=== PATIENT | male | born 1980 | race Caucasian/White ===

== ENCOUNTER 2020-11-20 11:26 | Inpatient (IN) | payer OTHER, SELFPAY ==
[~2020-11-20] VITALS: Ht 180.3 cm; Wt 104.3 kg
[2020-11-20 11:34] VITALS: BP 186/78
[2020-11-20 12:34] LABS: EOSINOPHILS % (AUTO) 0.3 % (0.0-4.0); HEMATOCRIT 42.7 % (36-52); HEMOGLOBIN 14.4 g/dL (12.0-18.0); LYMPHOCYTES # (AUTO) 0.6 K/uL (2.0-11.5); LYMPHOCYTES % (AUTO) 4.8 % (20.5-51.1); MEAN CORPUSCULAR HEMOGLOBIN 32 pg (27-31); MEAN CORPUSCULAR HGB CONC 34 g/dL (33-37); MEAN CORPUSCULAR VOLUME 93.8 fL (80-94); MONOCYTES # (AUTO) 0.3 K/uL (0.8-1.0); MONOCYTES % (AUTO) 2.2 % (1.7-9.3); NEUTROPHILS # (AUTO) 11.9 K/uL (1.8-7.7); NEUTROPHILS % (AUTO) 92.7 % (42.2-75.2); PLATELET COUNT (AUTO) 183 K/uL (140-450); RED BLOOD CELL COUNT(AUTO) 4.55 MIL/uL (4.20-6.10); WHITE BLOOD COUNT (AUTO) 12.9 K/uL (4.8-10.8)
[2020-11-20 12:44] LABS: CARBON DIOXIDE 29.5 mmol/L (21-32); CREATININE 1.1 mg/dL (0.6-1.3); POTASSIUM 3.5 mmol/L (3.5-5.1)
[2020-11-20 12:53] LABS: ALBUMIN 3.4 g/dL (3.4-5.0); BILIRUBIN,DIRECT 0.3 mg/dL (0.0-0.3); TOTAL BILIRUBIN 1.1 mg/dL (0.0-1.0)
[2020-11-20] MEDS ORDERED: NACL 0.9% 1,000 ML IV ONE (13:00)
[2020-11-20] MEDS ORDERED: metroNIDAZOLE 500 MG/NS PREMIX 100 ML IV ONE (13:00)
[2020-11-20 13:02] LABS: APPEARANCE,URINE CLEAR (CLEAR); BILIRUBIN,URINE NEGATIVE (NEGATIVE); BLOOD, URINE NEGATIVE (NEGATIVE); COLOR,URINE YELLOW (YELLOW); LEUKOCYTE ESTERASE ,URINE NEGATIVE (NEGATIVE); NITRITE, URINE NEGATIVE (NEGATIVE); UGLUCOSE NEGATIVE (NEGATIVE)
[2020-11-20] MEDS ORDERED: MORPHINE SULFATE 4 MG/ML SYR IVP ONE (13:05)
[2020-11-20] MEDS ORDERED: NACL 0.9% 1,000 ML IV SCH (13:15)
[2020-11-20] MEDS ORDERED: cefTRIAXone 1,000 MG VIAL ONE (13:20)
[2020-11-20] MEDS ORDERED: ONDANSETRON 4 MG/2 ML VIAL ONE (13:29)
[2020-11-20] MEDS: PIPERACILLIN/TAZOBACTAM 3.375 GM in DEXTROSE 5% 50 ML IV SCH (13:30)
[2020-11-20] MEDS ORDERED: ONDANSETRON 4 MG/2 ML VIAL IVP PRN (13:30)
[2020-11-20] MEDS ORDERED: PIPERACILLIN/TAZOBACTAM 3.375 GM VIAL IV ONE ×2 (13:40→20:33)
[2020-11-20] MEDS ORDERED: HYDROcodone/APAP 7.5/325 MG 1 TAB PO SCH (14:00)
[2020-11-20] MEDS ORDERED: OLAN10TA1 PO (15:36)
[2020-11-20] MEDS ORDERED: ESCI5SOL PO (15:36)
[2020-11-20] MEDS ORDERED: LISI10TA11 PO (15:36)
[2020-11-20] MEDS ORDERED: BENZ2TAB27 PO (15:36)
[2020-11-20] MEDS ORDERED: MAG SULF 2000 MG/WATER PREMIX 50 ML IV PRN (15:55)
[2020-11-20] MEDS ORDERED: POTASSIUM CHLORIDE 10 MEQ TABER PO PRN (15:55)
[2020-11-20] MEDS ORDERED: DOCUSATE SODIUM 100 MG GELCAP PO PRN (16:00)
[2020-11-20] MEDS: NACL 0.9% 1,000 ML IV SCH (16:00)
[2020-11-20] MEDS ORDERED: ONDANSETRON 4 MG/2 ML VIAL IM/IVP PRN (16:00)
[2020-11-20] MEDS ORDERED: ZOLPIDEM 5 MG TAB PO PRN (16:00)
[2020-11-20] MEDS ORDERED: LORazepam 2 MG/ML VIAL IM/IVP PRN (16:00)
[2020-11-20 16:35] LABS: PROTHROMBIN TIME 10.4 secs (10.8-13.4)
[2020-11-20 16:42] LABS: MAGNESIUM 2.2 mg/dL (1.8-2.4); PHOSPHORUS 3.5 mg/dL (2.5-4.9); THYROID STIMULATING HORMONE 1.79 uIU/mL (0.34-3.74)
[2020-11-20 18:50] VITALS: BP 154/57
[2020-11-20] MEDS ORDERED: PIPERACILLIN/TAZOBACTAM 3.375 GM in DEXTROSE 5% 50 ML IV SCH ×4 (21:00)
[2020-11-21] MEDS: NACL 0.9% 1,000 ML IV SCH ×2 (00:30→18:45)
[2020-11-21] MEDS: ACETAMINOPHEN 325 MG TAB PO PRN ×2 (01:05→19:02)
[2020-11-21 04:00] VITALS: BP 108/76
[2020-11-21] MEDS ORDERED: PIPERACILLIN/TAZOBACTAM 3.375 GM VIAL IV ONE (05:06)
[2020-11-21] MEDS: PIPERACILLIN/TAZOBACTAM 3.375 GM in DEXTROSE 5% 50 ML IV SCH ×3 (05:12→21:18)
[2020-11-21 06:16] LABS: BASOPHILS % (AUTO) 0.1 % (0.0-2.0); EOSINOPHILS # (AUTO) 0.1 K/uL (0-0.4); EOSINOPHILS % (AUTO) 0.7 % (0.0-4.0); HEMATOCRIT 36.4 % (36-52); HEMOGLOBIN 12.3 g/dL (12.0-18.0); LYMPHOCYTES # (AUTO) 0.8 K/uL (2.0-11.5); LYMPHOCYTES % (AUTO) 6.1 % (20.5-51.1); MEAN CORPUSCULAR HEMOGLOBIN 31 pg (27-31); MEAN CORPUSCULAR HGB CONC 34 g/dL (33-37); MEAN CORPUSCULAR VOLUME 92.4 fL (80-94); MONOCYTES # (AUTO) 0.7 K/uL (0.8-1.0); MONOCYTES % (AUTO) 5.5 % (1.7-9.3); NEUTROPHILS % (AUTO) 87.6 % (42.2-75.2); PLATELET COUNT (AUTO) 159 K/uL (140-450); RED BLOOD CELL COUNT(AUTO) 3.94 MIL/uL (4.20-6.10); RED CELL DISTRIBUTION WIDTH 14.1 % (11.6-13.7); WHITE BLOOD COUNT (AUTO) 12.5 K/uL (4.8-10.8)
[2020-11-21 06:42] LABS: ANION GAP 11.6 (8-16); CARBON DIOXIDE 25.9 mmol/L (21-32); CREATININE 0.8 mg/dL (0.6-1.3); POTASSIUM 3.5 mmol/L (3.5-5.1)
[2020-11-21 06:46] LABS: CHOL/HDL RATIO 3.7 (1-4.5)
[2020-11-21 07:23] LABS: PHOSPHORUS 2.9 mg/dL (2.5-4.9)
[2020-11-21 08:00] VITALS: BP 141/88
[2020-11-21] MEDS ORDERED: SUCCINYLCHOLINE CHLORIDE 200 MG/10 ML VIAL IVP ONE (09:00)
[2020-11-21] MEDS ORDERED: NEOSTIGMINE 1:1000 10 MG/10 ML VIAL ONE (09:00)
[2020-11-21] MEDS: BENZTROPINE 1 MG TAB PO SCH (09:00)
[2020-11-21] MEDS: CITALOPRAM 20 MG TAB PO SCH (09:00)
[2020-11-21] MEDS ORDERED: METOCLOPRAMIDE 10 MG/2 ML INJ VIAL ONE (09:00)
[2020-11-21] MEDS ORDERED: fentaNYL citrate 0.05 MG/ML VIAL ONE (09:00)
[2020-11-21] MEDS ORDERED: LIDOCAINE 2% 100 MG/5 ML SYR IVP ONE (09:00)
[2020-11-21] MEDS ORDERED: ONDANSETRON 4 MG/2 ML VIAL ONE (09:00)
[2020-11-21] MEDS ORDERED: ROCURONIUM 50 MG/5 ML VIAL IV ONE (09:00)
[2020-11-21] MEDS: lisinopriL 10 MG TAB PO SCH (09:00)
[2020-11-21] MEDS: OLANZapine 5 MG TAB PO SCH (09:00)
[2020-11-21] MEDS ORDERED: MORPHINE SULFATE 4 MG/ML SYR ONE (09:00)
[2020-11-21] MEDS ORDERED: GLYCOPYRROLATE 0.2 MG/ML VIAL ONE (09:00)
[2020-11-21] MEDS ORDERED: DEXAMETHASONE 4 MG/ML VIAL ONE (09:00)
[2020-11-21] MEDS ORDERED: PROPOFOL 200 MG/20 ML VIAL IV ONE (09:00)
[2020-11-21] MEDS ORDERED: SEVOFLURANE 250 ML BTL INH ONE (09:00)
[2020-11-21] MEDS ORDERED: MIDAZOLAM 2 MG/2 ML VIAL ONE (09:00)
[2020-11-21] MEDS ORDERED: BUPIVACAINE-MPF 0.25% 30 ML VIAL INJ ONE (09:01)
[2020-11-21] MEDS ORDERED: LIDOCAINE 1% 500 MG/50 ML VIAL ONE (09:01)
[2020-11-21] MEDS ORDERED: BACITRACIN 50000 UNITS/1 VIAL ONE (10:32)
[2020-11-21 20:00] VITALS: BP 149/102
[2020-11-22 04:00] VITALS: BP 153/101
[2020-11-22] MEDS: NACL 0.9% 1,000 ML IV SCH ×3 (04:57→18:00)
[2020-11-22] MEDS: PIPERACILLIN/TAZOBACTAM 3.375 GM in DEXTROSE 5% 50 ML IV SCH ×3 (04:58→21:16)
[2020-11-22] MEDS: MORPHINE SULFATE 2 MG/ML SYR IVP PRN (05:10)
[2020-11-22 06:02] LABS: BASOPHILS % (AUTO) 0.1 % (0.0-2.0); HEMOGLOBIN 12.9 g/dL (12.0-18.0); LYMPHOCYTES # (AUTO) 0.6 K/uL (2.0-11.5); LYMPHOCYTES % (AUTO) 4.2 % (20.5-51.1); MEAN CORPUSCULAR HEMOGLOBIN 32 pg (27-31); MEAN CORPUSCULAR HGB CONC 34 g/dL (33-37); MONOCYTES # (AUTO) 0.9 K/uL (0.8-1.0); MONOCYTES % (AUTO) 6.3 % (1.7-9.3); NEUTROPHILS # (AUTO) 12.4 K/uL (1.8-7.7); NEUTROPHILS % (AUTO) 89.4 % (42.2-75.2); PLATELET COUNT (AUTO) 216 K/uL (140-450); RED BLOOD CELL COUNT(AUTO) 4.09 MIL/uL (4.20-6.10); RED CELL DISTRIBUTION WIDTH 13.8 % (11.6-13.7); WHITE BLOOD COUNT (AUTO) 13.9 K/uL (4.8-10.8)
[2020-11-22 08:00] VITALS: BP 150/104
[2020-11-22 08:41] LABS: ANION GAP 12.2 (8-16); CARBON DIOXIDE 26.5 mmol/L (21-32); CREATININE 0.8 mg/dL (0.6-1.3); POTASSIUM 3.7 mmol/L (3.5-5.1)
[2020-11-22 08:42] LABS: MAGNESIUM 1.7 mg/dL (1.8-2.4); PHOSPHORUS 3.2 mg/dL (2.5-4.9)
[2020-11-22] MEDS: CITALOPRAM 20 MG TAB PO SCH (10:26)
[2020-11-22] MEDS: lisinopriL 10 MG TAB PO SCH (10:26)
[2020-11-22] MEDS: ACETAMINOPHEN 325 MG TAB PO PRN (10:26)
[2020-11-22] MEDS: OLANZapine 5 MG TAB PO SCH (10:26)
[2020-11-22] MEDS: BENZTROPINE 1 MG TAB PO SCH (10:26)
[2020-11-22 16:00] VITALS: BP 145/88
[2020-11-22 20:00] VITALS: BP 153/106
[2020-11-22] MEDS ORDERED: PIPERACILLIN/TAZOBACTAM 3.375 GM VIAL IV ONE (21:07)
[2020-11-23] MEDS: MORPHINE SULFATE 2 MG/ML SYR IVP PRN (03:58)
[2020-11-23 04:00] VITALS: BP 161/101
[2020-11-23] MEDS: NACL 0.9% 1,000 ML IV SCH ×2 (04:54→14:15)
[2020-11-23] MEDS: PIPERACILLIN/TAZOBACTAM 3.375 GM in DEXTROSE 5% 50 ML IV SCH ×3 (05:07→21:14)
[2020-11-23 07:56] LABS: ANION GAP 12.2 (8-16); CARBON DIOXIDE 26.2 mmol/L (21-32); CREATININE 0.7 mg/dL (0.6-1.3); POTASSIUM 3.4 mmol/L (3.5-5.1)
[2020-11-23 08:07] LABS: MAGNESIUM 2.3 mg/dL (1.8-2.4)
[2020-11-23] MEDS: CITALOPRAM 20 MG TAB PO SCH (09:35)
[2020-11-23] MEDS: BENZTROPINE 1 MG TAB PO SCH (09:35)
[2020-11-23] MEDS: lisinopriL 10 MG TAB PO SCH (09:36)
[2020-11-23] MEDS: OLANZapine 5 MG TAB PO SCH (09:36)
[2020-11-23 12:02] LABS: BASOPHILS # (AUTO) 0.1 K/uL (0.00-0.22); BASOPHILS % (AUTO) 0.4 % (0.0-2.0); EOSINOPHILS % (AUTO) 0.1 % (0.0-4.0); HEMATOCRIT 45.5 % (36-52); LYMPHOCYTES # (AUTO) 0.7 K/uL (2.0-11.5); LYMPHOCYTES % (AUTO) 5.6 % (20.5-51.1); MEAN CORPUSCULAR HEMOGLOBIN 31 pg (27-31); MEAN CORPUSCULAR HGB CONC 34 g/dL (33-37); MEAN CORPUSCULAR VOLUME 92.7 fL (80-94); MONOCYTES # (AUTO) 1.4 K/uL (0.8-1.0); MONOCYTES % (AUTO) 10.9 % (1.7-9.3); NEUTROPHILS # (AUTO) 10.7 K/uL (1.8-7.7); PLATELET COUNT (AUTO) 310 K/uL (140-450); WHITE BLOOD COUNT (AUTO) 12.9 K/uL (4.8-10.8)
[2020-11-23 12:36] LABS: HEMOGLOBIN 15.3 g/dL (12.0-18.0)
[2020-11-23 16:00] VITALS: BP 146/89
[2020-11-23 20:00] VITALS: BP 139/102
[2020-11-23] MEDS: metroNIDAZOLE 500 MG/NS PREMIX 100 ML IV SCH (21:18)
[2020-11-24] MEDS: PIPERACILLIN/TAZOBACTAM 3.375 GM in DEXTROSE 5% 50 ML IV SCH ×3 (05:23→22:01)
[2020-11-24] MEDS: metroNIDAZOLE 500 MG/NS PREMIX 100 ML IV SCH ×3 (05:50→23:00)
[2020-11-24 08:00] VITALS: BP 130/86
[2020-11-24] MEDS: NACL 0.9% 1,000 ML IV SCH ×3 (10:07→20:00)
[2020-11-24] MEDS: CITALOPRAM 20 MG TAB PO SCH (10:19)
[2020-11-24] MEDS: lisinopriL 10 MG TAB PO SCH (10:20)
[2020-11-24] MEDS: OLANZapine 5 MG TAB PO SCH (10:20)
[2020-11-24] MEDS: BENZTROPINE 1 MG TAB PO SCH (10:21)
[2020-11-24 10:38] LABS: HEMATOCRIT 40.7 % (36-52); HEMOGLOBIN 13.5 g/dL (12.0-18.0); MEAN CORPUSCULAR HEMOGLOBIN 31 pg (27-31); MEAN CORPUSCULAR HGB CONC 33 g/dL (33-37); MEAN CORPUSCULAR VOLUME 92.5 fL (80-94); PLATELET COUNT (AUTO) 308 K/uL (140-450); RED CELL DISTRIBUTION WIDTH 14.1 % (11.6-13.7); WHITE BLOOD COUNT (AUTO) 12.9 K/uL (4.8-10.8)
[2020-11-24 11:02] LABS: ANION GAP 10.7 (8-16); CARBON DIOXIDE 25.8 mmol/L (21-32); CREATININE 0.7 mg/dL (0.6-1.3); POTASSIUM 3.5 mmol/L (3.5-5.1)
[2020-11-24 11:10] LABS: MAGNESIUM 2.1 mg/dL (1.8-2.4); PHOSPHORUS 3.6 mg/dL (2.5-4.9)
[2020-11-24 11:37] LABS: LYMPHOCYTES % (MANUAL) 11 % (20-46); MONOCYTES % (MANUAL) 10 % (5-12)
[2020-11-24 16:00] VITALS: BP 141/86
[2020-11-24 20:00] VITALS: BP 135/83
[2020-11-25] MEDS ORDERED: CIPR500T4 PO (00:26)
[2020-11-25 04:00] VITALS: BP 147/93
[2020-11-25] MEDS: metroNIDAZOLE 500 MG/NS PREMIX 100 ML IV SCH ×2 (04:37→12:23)
[2020-11-25] MEDS: NACL 0.9% 1,000 ML IV SCH ×2 (06:00→16:53)
[2020-11-25] MEDS: PIPERACILLIN/TAZOBACTAM 3.375 GM in DEXTROSE 5% 50 ML IV SCH (06:13)
[2020-11-25 06:59] LABS: T4 (THYROXINE) INSUFFICIENT SPEC ug/dL (4.5 - 12.0)
[2020-11-25 08:00] VITALS: BP 144/91
[2020-11-25 08:23] LABS: BASOPHILS % (AUTO) 0.3 % (0.0-2.0); EOSINOPHILS # (AUTO) 0.2 K/uL (0-0.4); EOSINOPHILS % (AUTO) 1.1 % (0.0-4.0); HEMATOCRIT 41.5 % (36-52); HEMOGLOBIN 13.7 g/dL (12.0-18.0); LYMPHOCYTES # (AUTO) 1.4 K/uL (2.0-11.5); LYMPHOCYTES % (AUTO) 9.2 % (20.5-51.1); MEAN CORPUSCULAR HEMOGLOBIN 31 pg (27-31); MEAN CORPUSCULAR HGB CONC 33 g/dL (33-37); MEAN CORPUSCULAR VOLUME 93.3 fL (80-94); MONOCYTES # (AUTO) 0.2 K/uL (0.8-1.0); MONOCYTES % (AUTO) 1.6 % (1.7-9.3); NEUTROPHILS # (AUTO) 13.1 K/uL (1.8-7.7); NEUTROPHILS % (AUTO) 87.8 % (42.2-75.2); PLATELET COUNT (AUTO) 366 K/uL (140-450); RED BLOOD CELL COUNT(AUTO) 4.45 MIL/uL (4.20-6.10); RED CELL DISTRIBUTION WIDTH 14.7 % (11.6-13.7); WHITE BLOOD COUNT (AUTO) 14.9 K/uL (4.8-10.8)
[2020-11-25 08:30] LABS: CARBON DIOXIDE 30.3 mmol/L (21-32); CREATININE 0.8 mg/dL (0.6-1.3); POTASSIUM 3.3 mmol/L (3.5-5.1)
[2020-11-25 08:33] LABS: MAGNESIUM 2.4 mg/dL (1.8-2.4); PHOSPHORUS 3.9 mg/dL (2.5-4.9)
[2020-11-25] MEDS: lisinopriL 10 MG TAB PO SCH (09:31)
[2020-11-25] MEDS: CITALOPRAM 20 MG TAB PO SCH (09:31)
[2020-11-25] MEDS: BENZTROPINE 1 MG TAB PO SCH (09:31)
[2020-11-25] MEDS: OLANZapine 5 MG TAB PO SCH (09:31)
[2020-11-25 15:54] VITALS: BP 144/91
[2020-11-25 16:00] VITALS: BP 136/72
== END 2020-11-25 17:45 | disposition home or self-care (01) | DRG 853 ==
LOC: MED 11:26 → MMU 13:15 → MTU 11-24 00:06
PROVIDERS: ADMIT Hospitalist; ATTEND Hospitalist
PROC: 0WJG4ZZ Inspection of Peritoneal Cavity, Percutaneous Endoscopic Approach (ICD-10-PCS; 2020-11-21)
PROC: 0DTJ0ZZ Resection of Appendix, Open Approach (ICD-10-PCS; principal; 2020-11-21 09:00)
PROC: 0DNW0ZZ Release Peritoneum, Open Approach (ICD-10-PCS; 2020-11-21 09:00)
PROC: 0D9W00Z Drainage of Peritoneum with Drainage Device, Open Approach (ICD-10-PCS; 2020-11-21 09:00)
DX: A41.9 Sepsis, unspecified organism (principal); K35.33 Acute appendicitis with perforation, localized peritonitis, and gangrene, with abscess; K56.7 Ileus, unspecified; K56.51 Intestinal adhesions [bands], with partial obstruction; F20.9 Schizophrenia, unspecified; E66.01 Morbid (severe) obesity due to excess calories; Z20.822 Contact with and (suspected) exposure to COVID-19; E83.42 Hypomagnesemia; B96.1 Klebsiella pneumoniae [K. pneumoniae] as the cause of diseases classified elsewhere; I10 Essential (primary) hypertension; F32.9 Major depressive disorder, single episode, unspecified; K76.0 Fatty (change of) liver, not elsewhere classified; Z53.31 Laparoscopic surgical procedure converted to open procedure; Z68.32 Body mass index [BMI] 32.0-32.9, adult
CPT/HCPCS: 36415; 71045; 80048; 80076; 81003; 82150; 82374; 83036; 83690; 83735; 83880; 84100; 84134; 84436; 84443; 85025; 85610; 85730; 86900; 86901; 87070; 87075; 87081; 87205; 88304; 96361; 96374; 97110; 97116; 97161-GP; 97530; 99285; J0330; J0696; J1100; J1644; J2001; J2250; J2270; J2405; J2543; J2704; J2710; J2765; J3010; J3475; J3490; J7030; J7060